=== PATIENT | female | born 1995 | race Caucasian/White ===

== ENCOUNTER 2017-09-24 12:28 | Inpatient (IN) | payer MEDICAID, OTHER ==
[~2017-09-24] VITALS: Ht 157.5 cm; Wt 58.1 kg
[2017-09-24] MEDS ORDERED: SERT50TA12 PO (12:41)
[2017-09-24 13:21] LABS: BASOPHILS # (AUTO) 0.03 K/uL (0.00-0.20); BASOPHILS % (AUTO) 0.3 % (0.0-2.0); EOSINOPHILS # (AUTO) 0.08 K/uL (0.00-0.70); EOSINOPHILS % (AUTO) 0.84 % (1.0-6.0); HEMATOCRIT 40.8 % (36-46); HEMOGLOBIN 13.5 g/dL (12.0-16.0); LYMPHOCYTES # (AUTO) 2.5 K/uL (1.0-4.8); LYMPHOCYTES % (AUTO) 27.4 % (22.0-44.0); MEAN CORPUSCULAR HEMOGLOBIN 30.4 pg (26.0-34.0); MEAN CORPUSCULAR HGB CONC 33.2 G/dL (31.0-37.0); MEAN CORPUSCULAR VOLUME 92 fL (80-100); MONOCYTES # (AUTO) 0.5 K/uL (0.1-1.0); MONOCYTES % (AUTO) 4.9 % (2.0-9.0); NEUTROPHILS % (AUTO) 66.6 % (40.0-70.0); PLATELET COUNT (AUTO) 210 K/uL (150-450); RED BLOOD CELL COUNT(AUTO) 4.46 MIL/uL (4.00-5.20)
[2017-09-24 13:37] LABS: ANION GAP 11 mmol/L (8-16); CALCIUM, TOTAL 9.1 mg/dL (8.8-10.5); CARBON DIOXIDE 26 mmol/L (22-29); CHLORIDE 103 mmol/L (98-107); CREATININE 0.57 mg/dL (0.60-1.30); GLOMERULAR FILTR. RATE CALC > 60 mL/min (>60); GLUCOSE,RANDOM 90 mg/dL (70-110); SODIUM SERUM 140 mmol/L (136-145); UREA NITROGEN, BLOOD 17 mg/dL (7-18)
[2017-09-24 13:38] LABS: AMPHET/METH SCREEN,URINE POSITIVE (NEGATIVE); BARBITURATE SCREEN, URINE NEGATIVE (NEGATIVE); BENZODIAZEPINES SCREEN,URINE NEGATIVE (NEGATIVE); CANNABINOID SCREEN,URINE NEGATIVE (NEGATIVE); COCAINE SCREEN,URINE NEGATIVE (NEGATIVE); METHADONE SCREEN, URINE NEGATIVE (NEGATIVE); OPIATE SCREEN,URINE NEGATIVE (NEGATIVE)
[2017-09-24 13:39] LABS: PHENCYCLIDINE SCREEN,URINE NEGATIVE (NEGATIVE)
[2017-09-24 13:41] LABS: ALANINE AMINOTRANSFERASE 22 U/L (12-78); ALBUMIN 4.1 g/dL (3.4-5.0); ALKALINE PHOSPHATASE 88 U/L (46-116); ASPARTATE AMINOTRANSFERASE 18 U/L (15-37); BILIRUBIN,TOTAL 0.4 mg/dL (0.1-1.0); TOTAL PROTEIN, SERUM 8.1 g/dL (6.4-8.2)
[2017-09-24] MEDS ORDERED: ACETAMINOPHEN 325 MG TABLET PO PRN (14:45)
[2017-09-24] MEDS ORDERED: MAG HYDROX/AL HYDROX/SIMETH ES 30 ML SUSPENSION UDCUP PO PRN (14:45)
[2017-09-24] MEDS ORDERED: MAGNESIUM HYDROXIDE SUSPENSION 30 ML UDCUP PO PRN (14:45)
[2017-09-24] MEDS ORDERED: GuaiFENesin/D-METHORPHAN [SUGAR-FREE] 200-20MG/10 ML SYRUP UDCUP PO PRN (14:45)
[2017-09-24] MEDS ORDERED: PROMETHAZINE HCL 25 MG TABLET PO PRN ×2 (14:45)
[2017-09-24] MEDS ORDERED: ZOLPIDEM TARTRATE 10 MG TABLET PO PRN (14:45)
[2017-09-24] MEDS ORDERED: LORazepam 2 MG TABLET PO PRN (14:45)
[2017-09-24] MEDS ORDERED: HydrOXYzine PAMOATE 50 MG CAPSULE PO PRN (14:45)
[2017-09-24] MEDS ORDERED: TUBERCULIN, PURIFIED PROTEIN DERIVATIVE 5 TU/0.1 ML SYG ID ONE (14:45)
[2017-09-24] MEDS ORDERED: LOPERAMIDE HCL 2 MG CAPSULE PO PRN (14:45)
[2017-09-24] MEDS ORDERED: QUEtiapine FUMARATE 100 MG TABLET PO PRN (14:45)
[2017-09-24 15:27] LABS: HCG,QUANTITATIVE < 1 mIU/mL (0-6)
[2017-09-24 17:15] VITALS: BP 112/75
[2017-09-24] MEDS: THIAMINE HCL 100 MG TABLET PO SCH (18:02)
[2017-09-25 06:43] LABS: BASOPHILS # (AUTO) 0.03 K/uL (0.00-0.20); BASOPHILS % (AUTO) 0.3 % (0.0-2.0); EOSINOPHILS # (AUTO) 0.17 K/uL (0.00-0.70); EOSINOPHILS % (AUTO) 2.13 % (1.0-6.0); HEMATOCRIT 39.8 % (36-46); HEMOGLOBIN 13.2 g/dL (12.0-16.0); LYMPHOCYTES # (AUTO) 2.6 K/uL (1.0-4.8); LYMPHOCYTES % (AUTO) 33.1 % (22.0-44.0); MEAN CORPUSCULAR HEMOGLOBIN 30.3 pg (26.0-34.0); MEAN CORPUSCULAR HGB CONC 33.3 G/dL (31.0-37.0); MEAN CORPUSCULAR VOLUME 91 fL (80-100); MONOCYTES # (AUTO) 0.5 K/uL (0.1-1.0); MONOCYTES % (AUTO) 6.4 % (2.0-9.0); NEUTROPHILS # (AUTO) 4.6 K/uL (1.8-7.7); NEUTROPHILS % (AUTO) 58.1 % (40.0-70.0); PLATELET COUNT (AUTO) 196 K/uL (150-450); RED BLOOD CELL COUNT(AUTO) 4.38 MIL/uL (4.00-5.20); RED CELL DISTRIBUTION WIDTH 13.1 % (11.5-14.5)
[2017-09-25 07:44] LABS: ALANINE AMINOTRANSFERASE 17 U/L (12-78); ALBUMIN 3.5 g/dL (3.4-5.0); ALKALINE PHOSPHATASE 80 U/L (46-116); ANION GAP 7 mmol/L (8-16); ASPARTATE AMINOTRANSFERASE 15 U/L (15-37); BILIRUBIN,TOTAL 0.4 mg/dL (0.1-1.0); CALCIUM, TOTAL 8.7 mg/dL (8.8-10.5); CARBON DIOXIDE 29 mmol/L (22-29); CHLORIDE 104 mmol/L (98-107); CHOL/HDL RATIO 4.3 (3.9-5.7); CHOLESTEROL 145 mg/dL (131-200); CREATININE 0.69 mg/dL (0.60-1.30); FREE T4 (FREE THYROXINE) 0.96 ng/dL (0.76-1.46); GLOMERULAR FILTR. RATE CALC > 60 mL/min (>60); GLUCOSE,RANDOM 89 mg/dL (70-110); HDL CHOLESTEROL 34 mg/dL (40-60); LDL CHOL (CALC.) 98 mg/dL (0-130); POTASSIUM 3.5 mmol/L (3.5-5.1); SODIUM SERUM 140 mmol/L (136-145); THYROID STIMULATING HORMONE 0.25 uIU/mL (0.36-3.74); TOTAL PROTEIN, SERUM 7.2 g/dL (6.4-8.2); TRIGLYCERIDES 67 mg/dL (15-150); UREA NITROGEN, BLOOD 14 mg/dL (7-18)
[2017-09-25 08:02] LABS: HEMOGLOBIN A1C 5.3 % (4.5-6.2)
[2017-09-25 08:42] VITALS: BP 101/50
[2017-09-25] MEDS: THIAMINE HCL 100 MG TABLET PO SCH ×2 (09:52→17:31)
[2017-09-25] MEDS: NALTREXONE HCL 50 MG TABLET PO SCH (09:52)
[2017-09-25] MEDS: FOLIC ACID 1 MG TABLET PO SCH (09:52)
[2017-09-25] MEDS: ARIPiprazole 15 MG TABLET PO SCH (09:52)
[2017-09-25] MEDS: MULTIVITAMINS WITH MINERALS, THERAPEUTIC TABLET PO SCH (09:53)
[2017-09-25] MEDS ORDERED: HydrOXYzine HCL 50 MG TABLET PO PRN (16:30)
[2017-09-25] MEDS ORDERED: IBUPROFEN 400 MG TABLET PO PRN (17:15)
[2017-09-25] MEDS ORDERED: ACETAMINOPHEN 325 MG TABLET PO PRN (17:15)
[2017-09-25 17:24] VITALS: BP 137/78
[2017-09-26] MEDS: ARIPiprazole 15 MG TABLET PO SCH (08:32)
[2017-09-26] MEDS: NALTREXONE HCL 50 MG TABLET PO SCH (08:32)
[2017-09-26] MEDS: MULTIVITAMINS WITH MINERALS, THERAPEUTIC TABLET PO SCH (08:33)
[2017-09-26] MEDS: FOLIC ACID 1 MG TABLET PO SCH (08:33)
[2017-09-26] MEDS: SERTRALINE HCL 50 MG TABLET PO SCH (08:34)
[2017-09-26] MEDS: THIAMINE HCL 100 MG TABLET PO SCH ×2 (08:34→16:27)
[2017-09-26 10:20] VITALS: BP 111/89
[2017-09-26] MEDS ORDERED: NALT50TA PO (12:44)
[2017-09-26] MEDS ORDERED: ARIP15TA2 PO (12:44)
[2017-09-26] MEDS ORDERED: SERT50TA12 PO (12:44)
[2017-09-26 16:41] VITALS: BP 118/63
[2017-09-27] MEDS: NALTREXONE HCL 50 MG TABLET PO SCH (09:16)
[2017-09-27] MEDS: THIAMINE HCL 100 MG TABLET PO SCH (09:16)
[2017-09-27] MEDS: SERTRALINE HCL 50 MG TABLET PO SCH (09:16)
[2017-09-27] MEDS: ARIPiprazole 15 MG TABLET PO SCH (09:16)
[2017-09-27] MEDS: MULTIVITAMINS WITH MINERALS, THERAPEUTIC TABLET PO SCH (09:16)
[2017-09-27] MEDS: FOLIC ACID 1 MG TABLET PO SCH (09:16)
[2017-09-27 10:15] VITALS: BP 118/75
== END 2017-09-27 14:43 | disposition home or self-care (01) | DRG 753 ==
LOC: EMS 12:29 → 3EI 16:24
PROVIDERS: ADMIT Psychiatry & Neurology Psychiatry; ATTEND Psychiatry & Neurology Psychiatry
DX: F31.60 Bipolar disorder, current episode mixed, unspecified (principal); R45.851 Suicidal ideations; Z91.19 Patient's noncompliance with other medical treatment and regimen; F15.10 Other stimulant abuse, uncomplicated; F10.10 Alcohol abuse, uncomplicated; F41.9 Anxiety disorder, unspecified; F17.200 Nicotine dependence, unspecified, uncomplicated; Z91.5 Personal history of self-harm; Z79.899 Other long term (current) drug therapy; Z59.9 Problem related to housing and economic circumstances, unspecified; Z65.3 Problems related to other legal circumstances
CPT/HCPCS: 83036; 84439; 84443; 86592; 99285; 99406; G0480

== ENCOUNTER 2018-04-05 21:00 | Emergency (ER) | payer MEDICAID, OTHER ==
[~2018-04-05] VITALS: Ht 157.5 cm; Wt 61.4 kg
[~2018-04-05 21:00] MED LIST: ARIP15TA2 PO; NALT50TA PO; SERT50TA12 PO
[2018-04-05] MEDS ORDERED: LORazepam 2 MG TABLET PO ONE (22:00)
[2018-04-05 22:09] LABS: BASOPHILS % (AUTO) 0.6 % (0.0-2.0); EOSINOPHILS % (AUTO) 2.5 % (1.0-6.0); HEMATOCRIT 42.2 % (36-46); LYMPHOCYTES # (AUTO) 2.8 K/uL (1.0-4.8); LYMPHOCYTES % (AUTO) 31.6 % (22.0-44.0); MEAN CORPUSCULAR HEMOGLOBIN 29.1 pg (26.0-34.0); MEAN CORPUSCULAR HGB CONC 33.1 G/dL (31.0-37.0); MEAN CORPUSCULAR VOLUME 88 fL (80-100); MONOCYTES # (AUTO) 0.4 K/uL (0.1-1.0); MONOCYTES % (AUTO) 5.1 % (2.0-9.0); NEUTROPHILS # (AUTO) 5.3 K/uL (1.8-7.7); NEUTROPHILS % (AUTO) 60.2 % (40.0-70.0); PLATELET COUNT (AUTO) 185 K/uL (150-450); RED CELL DISTRIBUTION WIDTH 13.2 % (11.5-14.5)
[2018-04-05 22:13] LABS: APPEARANCE,URINE CLOUDY (CLEAR); BILIRUBIN,URINE NEGATIVE (NEGATIVE); GLUCOSE, URINE (UA) NEGATIVE (NEGATIVE); KETONES,URINE NEGATIVE (NEGATIVE); LEUKOCYTE ESTERASE ,URINE TRACE (NEGATIVE); NITRATE,URINE NEGATIVE (NEGATIVE); OCCULT BLOOD,URINE MODERATE (NEGATIVE); PROTEIN,URINE TRACE (NEGATIVE)
[2018-04-05 22:18] LABS: AMPHET/METH SCREEN,URINE NEGATIVE (NEGATIVE); BARBITURATE SCREEN, URINE NEGATIVE (NEGATIVE); BENZODIAZEPINES SCREEN,URINE NEGATIVE (NEGATIVE); CANNABINOID SCREEN,URINE POSITIVE (NEGATIVE); COCAINE SCREEN,URINE NEGATIVE (NEGATIVE); METHADONE SCREEN, URINE NEGATIVE (NEGATIVE); OPIATE SCREEN,URINE NEGATIVE (NEGATIVE)
[2018-04-05 22:21] LABS: PHENCYCLIDINE SCREEN,URINE NEGATIVE (NEGATIVE)
[2018-04-05 22:25] LABS: BACTERIA,URINE Moderate /HPF (None Seen); MUCUS,URINE Many LPF (None Seen); SQUAMOUS EPITHELIAL CELL,UR Many /LPF (None Seen)
[2018-04-05 22:26] LABS: HYALINE CASTS, URINE 0-2 /LPF (None Seen)
[2018-04-05 22:29] LABS: ANION GAP 12 mmol/L (8-16); CALCIUM, TOTAL 8.9 mg/dL (8.8-10.5); CARBON DIOXIDE 27 mmol/L (22-29); CHLORIDE 100 mmol/L (98-107); CREATININE 0.73 mg/dL (0.60-1.30); GLOMERULAR FILTR. RATE CALC > 60 mL/min (>60); GLUCOSE,RANDOM 95 mg/dL (70-110); POTASSIUM 3.9 mmol/L (3.5-5.1); SODIUM SERUM 139 mmol/L (136-145); UREA NITROGEN, BLOOD 16 mg/dL (7-18)
[2018-04-05 22:35] LABS: ALANINE AMINOTRANSFERASE 21 U/L (12-78); ALBUMIN 4.1 g/dL (3.4-5.0); ALKALINE PHOSPHATASE 95 U/L (46-116); ASPARTATE AMINOTRANSFERASE 18 U/L (15-37); BILIRUBIN,TOTAL 0.2 mg/dL (0.1-1.0); TOTAL PROTEIN, SERUM 7.8 g/dL (6.4-8.2)
[2018-04-05 22:55] VITALS: BP 122/69
== END 2018-04-06 | disposition home or self-care (01) ==
LOC: EMS 21:01
DX: F41.9 Anxiety disorder, unspecified (principal); R56.9 Unspecified convulsions; T40.7X5A Adverse effect of cannabis (derivatives), initial encounter; F32.9 Major depressive disorder, single episode, unspecified; K21.9 Gastro-esophageal reflux disease without esophagitis; F17.210 Nicotine dependence, cigarettes, uncomplicated; Y92.89 Other specified places as the place of occurrence of the external cause
CPT/HCPCS: 36415; 80053; 80307; 81001; 84703; 85025; 87086; 99284; G0480

== ENCOUNTER 2021-10-20 14:59 | Inpatient (IN) | payer MEDICAID, OTHER ==
[~2021-10-20] VITALS: Ht 157.5 cm; Wt 73.0 kg
[~2021-10-20 14:59] MED LIST changes: -ARIP15TA2 PO; +BUPR-49 PO; +OLAN10TA22 PO; -SERT50TA12 PO
[2021-10-20 15:38] LABS: BASOPHILS % (AUTO) 0.5 % (0.0-2.0); EOSINOPHILS % (AUTO) 2.2 % (1.0-6.0); HEMATOCRIT 40.4 % (36-46); HEMOGLOBIN 13.4 g/dL (12.0-16.0); LYMPHOCYTES # (AUTO) 2.4 K/uL (1.0-4.8); MEAN CORPUSCULAR HEMOGLOBIN 28.9 pg (26.0-34.0); MEAN CORPUSCULAR HGB CONC 33.1 G/dL (31.0-37.0); MEAN CORPUSCULAR VOLUME 87 fL (80-100); MONOCYTES # (AUTO) 0.5 K/uL (0.1-1.0); MONOCYTES % (AUTO) 5.6 % (2.0-9.0); NEUTROPHILS # (AUTO) 5.8 K/uL (1.8-7.7); NEUTROPHILS % (AUTO) 64.7 % (40.0-70.0); PLATELET COUNT (AUTO) 233 K/uL (150-450); RED BLOOD CELL COUNT(AUTO) 4.63 MIL/uL (4.00-5.20); RED CELL DISTRIBUTION WIDTH 13.4 % (11.5-14.5)
[2021-10-20 15:47] LABS: ANION GAP 9 mmol/L (8-16); CALCIUM, TOTAL 9.3 mg/dL (8.8-10.5); CARBON DIOXIDE 27 mmol/L (22-29); CHLORIDE 104 mmol/L (98-107); CREATININE 0.67 mg/dL (0.60-1.30); GLOMERULAR FILTR. RATE CALC > 60 mL/min (>60); GLUCOSE,RANDOM 94 mg/dL (70-110); POTASSIUM 3.8 mmol/L (3.5-5.1); SODIUM SERUM 140 mmol/L (136-145); UREA NITROGEN, BLOOD 13 mg/dL (7-18)
[2021-10-20 15:53] LABS: ALANINE AMINOTRANSFERASE 38 U/L (12-78); ALKALINE PHOSPHATASE 93 U/L (46-116); ASPARTATE AMINOTRANSFERASE 20 U/L (15-37); BILIRUBIN,TOTAL 0.2 mg/dL (0.1-1.0); TOTAL PROTEIN, SERUM 7.7 g/dL (6.4-8.2)
[2021-10-20 16:09] LABS: AMPHET/METH SCREEN,URINE NEGATIVE (NEGATIVE); BARBITURATE SCREEN, URINE NEGATIVE (NEGATIVE); BENZODIAZEPINES SCREEN,URINE NEGATIVE (NEGATIVE); CANNABINOID SCREEN,URINE NEGATIVE (NEGATIVE); COCAINE SCREEN,URINE NEGATIVE (NEGATIVE); METHADONE SCREEN, URINE NEGATIVE (NEGATIVE); OPIATE SCREEN,URINE NEGATIVE (NEGATIVE)
[2021-10-20] MEDS ORDERED: ZOLPIDEM TARTRATE 10 MG TABLET PO PRN (16:15)
[2021-10-20] MEDS ORDERED: OLANZapine 5 MG RAPDIS TABLET PO PRN (16:15)
[2021-10-20 16:16] LABS: PHENCYCLIDINE SCREEN,URINE NEGATIVE (NEGATIVE)
[2021-10-20 16:40] LABS: COVID AG,FIA SOURCE NASOPHARYNGEAL
[2021-10-20] MEDS ORDERED: INFLUENZA VIRUS VACCINE QVS 2021-22 (6MO+)/PF 60 MCG/0.5 ML SYRINGE IM. ONE (20:00)
[2021-10-20 20:42] VITALS: BP 139/95
[2021-10-20] MEDS ORDERED: PROMETHAZINE HCL 25 MG TABLET PO PRN (21:15)
[2021-10-20] MEDS ORDERED: HydrOXYzine PAMOATE 50 MG CAPSULE PO PRN (21:15)
[2021-10-20] MEDS ORDERED: TUBERCULIN, PURIFIED PROTEIN DERIVATIVE 5 TU/0.1 ML SYRINGE ID ONE (21:15)
[2021-10-20] MEDS ORDERED: GuaiFENesin/D-METHORPHAN [SUGAR-FREE] 200-20MG/10 ML SYRUP UDCUP PO PRN (21:15)
[2021-10-20] MEDS ORDERED: LOPERAMIDE HCL 2 MG CAPSULE PO PRN (21:15)
[2021-10-20] MEDS ORDERED: MAG HYDROX/AL HYDROX/SIMETH ES 30 ML SUSPENSION UDCUP PO PRN (21:15)
[2021-10-20] MEDS ORDERED: MAGNESIUM HYDROXIDE SUSPENSION 30 ML UDCUP PO PRN (21:15)
[2021-10-20] MEDS ORDERED: ACETAMINOPHEN 325 MG TABLET PO PRN (21:15)
[2021-10-21 00:13] VITALS: BP 114/70
[2021-10-21] MEDS ORDERED: CloNIDine HCL 0.1 MG TABLET PO PRN (07:00)
[2021-10-21] MEDS ORDERED: MAGNESIUM HYDROXIDE SUSPENSION 30 ML UDCUP PO PRN (07:00)
[2021-10-21] MEDS ORDERED: MAG HYDROX/AL HYDROX/SIMETH ES 30 ML SUSPENSION UDCUP PO PRN (07:00)
[2021-10-21] MEDS ORDERED: PETROLATUM,WHITE 28 GM JELLY TP PRN (07:00)
[2021-10-21] MEDS ORDERED: GuaiFENesin/D-METHORPHAN [SUGAR-FREE] 200-20MG/10 ML SYRUP UDCUP PO PRN (07:00)
[2021-10-21] MEDS ORDERED: IBUPROFEN 400 MG TABLET PO PRN (07:00)
[2021-10-21] MEDS ORDERED: NICOTINE 14 MG/24 HOUR PATCH TD PRN (07:00)
[2021-10-21] MEDS ORDERED: ONDANSETRON HCL 4 MG TABLET PO PRN (07:00)
[2021-10-21] MEDS ORDERED: ACETAMINOPHEN 325 MG TABLET PO PRN (07:00)
[2021-10-21] MEDS ORDERED: ALBUTEROL SULFATE HFA 90 MCG/PUFF 8 GM INHALER IH PRN (07:00)
[2021-10-21] MEDS ORDERED: LOPERAMIDE HCL 2 MG CAPSULE PO PRN (07:00)
[2021-10-21] MEDS: LURASIDONE HCL 20 MG TABLET PO SCH (07:00)
[2021-10-21] MEDS ORDERED: DOCUSATE SODIUM 100 MG CAPSULE PO PRN (07:00)
[2021-10-21 08:27] VITALS: BP 108/67
[2021-10-21] MEDS: MULTIVITAMINS WITH MINERALS, THERAPEUTIC TABLET PO SCH (08:57)
[2021-10-21] MEDS: NALTREXONE HCL 50 MG TABLET PO SCH (08:57)
[2021-10-21] MEDS: OMEGA-3/DHA/EPA/FISH OIL 1,000 MG CAPSULE PO SCH (08:57)
[2021-10-21] MEDS: THIAMINE 100 MG TABLET PO SCH ×2 (08:57→17:12)
[2021-10-21] MEDS: FOLIC ACID 1 MG TABLET PO SCH (08:57)
[2021-10-21] MEDS ORDERED: BuPROPion HCL XL 150 MG ER TABLET PO SCH (09:00)
[2021-10-21] MEDS ORDERED: LamoTRIgine 25 MG TABLET PO SCH (09:00)
[2021-10-21 09:03] LABS: HEMOGLOBIN A1C 5.4 % (3.8-5.6)
[2021-10-21 09:53] LABS: CHOL/HDL RATIO 5.3 (3.9-5.7); FREE T4 (FREE THYROXINE) 0.91 ng/dL (0.76-1.46); THYROID STIMULATING HORMONE 0.97 uIU/mL (0.36-3.74)
[2021-10-21] MEDS ORDERED: ARIPiprazole 15 MG TABLET PO ONE (15:45)
[2021-10-21] MEDS: LORazepam 2 MG TABLET PO PRN (16:10)
[2021-10-21 16:22] VITALS: BP 112/65
[2021-10-21] MEDS: PROPRANOLOL HCL 10 MG TABLET PO SCH (17:11)
[2021-10-21] MEDS: MELATONIN 5 MG TABLET PO SCH (20:27)
[2021-10-21] MEDS: TraZODone HCL 50 MG TABLET PO SCH (20:57)
[2021-10-22 01:22] VITALS: BP 117/68
[2021-10-22] MEDS: LURASIDONE HCL 20 MG TABLET PO SCH (06:19)
[2021-10-22 08:20] VITALS: BP 118/73
[2021-10-22] MEDS: OMEGA-3/DHA/EPA/FISH OIL 1,000 MG CAPSULE PO SCH (08:43)
[2021-10-22] MEDS: THIAMINE 100 MG TABLET PO SCH ×2 (08:43→16:20)
[2021-10-22] MEDS: NALTREXONE HCL 50 MG TABLET PO SCH (08:43)
[2021-10-22] MEDS: MULTIVITAMINS WITH MINERALS, THERAPEUTIC TABLET PO SCH (08:43)
[2021-10-22] MEDS: FOLIC ACID 1 MG TABLET PO SCH (08:43)
[2021-10-22] MEDS: PROPRANOLOL HCL 10 MG TABLET PO SCH ×2 (08:44→16:20)
[2021-10-22] MEDS: ARIPiprazole 15 MG TABLET PO SCH (08:44)
[2021-10-22] MEDS: LORazepam 2 MG TABLET PO PRN (14:00)
[2021-10-22 16:15] VITALS: BP 102/62
[2021-10-22] MEDS: MELATONIN 5 MG TABLET PO SCH (20:14)
[2021-10-22] MEDS: TraZODone HCL 50 MG TABLET PO SCH (20:14)
[2021-10-23 01:51] VITALS: BP 105/62
[2021-10-23] MEDS: LURASIDONE HCL 20 MG TABLET PO SCH (06:31)
[2021-10-23] MEDS: FOLIC ACID 1 MG TABLET PO SCH (08:21)
[2021-10-23] MEDS: MULTIVITAMINS WITH MINERALS, THERAPEUTIC TABLET PO SCH (08:21)
[2021-10-23] MEDS: OMEGA-3/DHA/EPA/FISH OIL 1,000 MG CAPSULE PO SCH (08:21)
[2021-10-23] MEDS: NALTREXONE HCL 50 MG TABLET PO SCH (08:21)
[2021-10-23] MEDS: THIAMINE 100 MG TABLET PO SCH ×2 (08:21→16:21)
[2021-10-23] MEDS: ARIPiprazole 15 MG TABLET PO SCH (08:21)
[2021-10-23] MEDS: PROPRANOLOL HCL 10 MG TABLET PO SCH ×2 (08:21→16:21)
[2021-10-23 08:41] VITALS: BP 105/69
[2021-10-23 16:29] VITALS: BP 108/64
[2021-10-23] MEDS: MELATONIN 5 MG TABLET PO SCH (20:11)
[2021-10-23] MEDS: TraZODone HCL 50 MG TABLET PO SCH (20:11)
[2021-10-24 01:36] VITALS: BP 110/63
[2021-10-24] MEDS: LURASIDONE HCL 20 MG TABLET PO SCH (06:28)
[2021-10-24 08:14] VITALS: BP 106/64
[2021-10-24] MEDS: THIAMINE 100 MG TABLET PO SCH ×2 (09:23→16:26)
[2021-10-24] MEDS: NALTREXONE HCL 50 MG TABLET PO SCH (09:23)
[2021-10-24] MEDS: PROPRANOLOL HCL 10 MG TABLET PO SCH ×2 (09:23→16:27)
[2021-10-24] MEDS: FOLIC ACID 1 MG TABLET PO SCH (09:23)
[2021-10-24] MEDS: OMEGA-3/DHA/EPA/FISH OIL 1,000 MG CAPSULE PO SCH (09:24)
[2021-10-24] MEDS: ARIPiprazole 15 MG TABLET PO SCH (09:24)
[2021-10-24] MEDS: MULTIVITAMINS WITH MINERALS, THERAPEUTIC TABLET PO SCH (09:24)
[2021-10-24] MEDS ORDERED: LURA20TA PO ×2 (14:40→15:49)
[2021-10-24] MEDS ORDERED: OMEG-135 PO ×2 (14:40→16:05)
[2021-10-24] MEDS ORDERED: PROP10TA72 PO (14:40)
[2021-10-24] MEDS ORDERED: MELA5TAB40 PO ×2 (14:40→16:09)
[2021-10-24] MEDS ORDERED: ARIP15TA27 PO ×2 (14:40→15:47)
[2021-10-24] MEDS ORDERED: NALT50TA PO (14:40)
[2021-10-24] MEDS ORDERED: PROP20TA18 PO (15:57)
[2021-10-24] MEDS ORDERED: OMEG1CAP45 PO (16:05)
[2021-10-24 16:33] VITALS: BP 115/76
== END 2021-10-24 17:00 | disposition home or self-care (01) | DRG 754 ==
LOC: EMS 15:03 → B2S 16:29
PROVIDERS: ADMIT Psychiatry & Neurology Psychiatry; ATTEND Psychiatry & Neurology Psychiatry
DX: F32.A Depression, unspecified (principal); F12.10 Cannabis abuse, uncomplicated; F41.9 Anxiety disorder, unspecified; G44.209 Tension-type headache, unspecified, not intractable; G47.00 Insomnia, unspecified; Z20.822 Contact with and (suspected) exposure to COVID-19; K21.00 Gastro-esophageal reflux disease with esophagitis, without bleeding; Z91.52 Personal history of nonsuicidal self-harm
CPT/HCPCS: 80053; 80061; 83036; 84439; 84443; 85025; 86592; 99285; G0480; Q9967